=== PATIENT | female | born 1940 ===

== ENCOUNTER 2021-09-10 07:46 | Outpatient (CLI) | payer MEDICARE ==
[~2021-09-10] VITALS: Wt 48.7 kg
[2021-09-10 08:39] LABS: BASO # 0.1 K/mm3 (0.0-0.2); BASO % 0.9 % (0.0-2.0); EOS # 0.7 K/mm3 (0.0-0.7); EOS % 9.2 % (0.0-4.0); GRAN # 3.9 K/mm3 (1.4-6.5); GRAN % 51.6 % (42.2-75.2); HEMOGLOBIN 13.6 g/dl (12.5-16.0); LYMPH % 26.1 % (20.0-51.0); MEAN CELL VOLUME 88 fl (80.0-100.0); MEAN CORPUSCULAR HEMOGLOBIN 28 pg (27-31); MEAN CORPUSCULAR HGB CONC 32 g/dl (33.0-37.0); MEAN PLATELET VOLUME 9.8 fl (7.4-10.4); MONO # 0.9 K/mm3 (0.1-0.6); MONO % 11.9 % (1.7-9.3); PLATELET COUNT 314 K/mm3 (130-400); RED BLOOD COUNT 4.79 M/mm3 (4.10-5.30); REDCELL DISTRIBUTION WIDTH-CV 13.7 % (11.5-14.5)
[2021-09-10] MEDS ORDERED: PRINIVIL10 MG PO (08:41)
[2021-09-10] MEDS ORDERED: GLUCOPHAGE500 MG/TAB PO (08:41)
[2021-09-10] MEDS ORDERED: AMARYL1 MG PO (08:43)
[2021-09-10] MEDS ORDERED: ASPIRIN E.C. 8181 MG PO (08:45)
[2021-09-10] MEDS ORDERED: CALCIUM 600-D 61 TAB PO (08:46)
[2021-09-10 08:53] VITALS: BP 184/80; PULSE 71; TEMP 97.6
[2021-09-10 08:53] LABS: CALCIUM 9.9 mg/dL (8.4-10.2); CREATININE, serum 1.02 mg/dL (0.57-1.11); POTASSIUM 4.5 mmol/L (3.5-4.5)
--- NOTE | 2021-09-10 09:41 | NUR ---
PATIENT ARRIVED AMBUALTORY, A&O X3, BREATHING NORMAL, NON-LABORED, LUNGS CTA, PED/RAD PULSES DENIES ACUTE ISSUES.
[2021-09-10 10:15] VITALS: BP 119/59; PULSE 70
[2021-09-10 10:30] VITALS: BP 125/65; PULSE 64
[2021-09-10 10:45] VITALS: BP 142/69; PULSE 60
[2021-09-10 11:00] VITALS: BP 152/85; PULSE 61
--- NOTE | 2021-09-10 13:38 | NUR ---
PATIENT AWAKE, ALERT. DENIES ACUTE ISSUES, VS STABLE, IV DC'D, WRAPPED WITH COBAND, PATIENT CHANGED INTO CLOTHING, ESCORTED TO CAR VIA WHEELCHAIR BY STAFF
== END 2021-09-10 13:40 | disposition home or self-care (01) ==
LOC: COL.RAD 07:46
PROVIDERS: Internal Medicine Cardiovascular Disease
DX: I35.0 Nonrheumatic aortic (valve) stenosis (principal); I10 Essential (primary) hypertension; E11.9 Type 2 diabetes mellitus without complications
CPT/HCPCS: J0330; J2704